=== PATIENT | female | born 1985 | race American Indian/Alaskan Native ===

== ENCOUNTER 2017-08-26 12:42 | Outpatient (CLI) | payer MEDICAID ==
--- NOTE | 2017-08-26 14:15 | Cat Scan Report ---
CT CHEST WITHOUT CONTRAST: HISTORY: Pericardial effusion. COMPARISON: none. TECHNIQUE: Helical CT in 1.25mm intervals without IV contrast. Sagittal and coronal reformatted images. FINDINGS: Thyroid gland: Normal. Tracheobronchial tree: Normal. Esophagus: Normal. Heart: Normal. Pericardium: A small pericardial effusion is identified measuring up to 9 mm in thickness along the free left ventricular wall. No obvious pericardial nodularity on noncontrast CT. No pericardial calcifications. 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 No mediastinal mass or inflammation. Lung Raines: Normal. Pleural Spaces: Normal. Musculoskeletal: Normal. IMPRESSION: Small pericardial effusion as described. Aberrant origin of the right subclavian artery Normal lung parenchyma.
== END 2017-08-26 12:43 | disposition home or self-care (01) ==
LOC: CT 12:42
PROVIDERS: ATTEND Internal Medicine Cardiovascular Disease
DX: I31.3 Pericardial effusion (noninflammatory) (principal); R07.9 Chest pain, unspecified; D64.9 Anemia, unspecified; I10 Essential (primary) hypertension
CPT/HCPCS: 71250